=== PATIENT | male | born 1985 | race African-American/Black ===

== ENCOUNTER 2017-07-17 15:31 | Emergency (ER) | payer OTHER ==
[~2017-07-17] VITALS: Ht 170.2 cm; Wt 74.8 kg
--- NOTE | 2017-07-17 16:41 | NUR ---
PT TO ER BED 11. HERE FOR PSYCH EVAL. STATES HAVING SI AND HI. PLAN ON SHOOTING AT PEOPLE. PT PLACED ON SUICIDE PRECAUTION. STABLE VITALS. AWAITING MD STEPHENSON.
--- NOTE | 2017-07-17 16:49 | NUR ---
DR HOLLEY AT BEDSIDE FOR EVAL.
--- NOTE | 2017-07-17 16:57 | NUR ---
TAG METER OPERATOR AT BEDSIDE FOR BLOOD DRAW.
[2017-07-17 17:02] LABS: EOSINOPHILS # (AUTO) 0.1 /CMM (0.0-0.7); HEMOGLOBIN 13.7 g/dL (13.5-17.5); LYMPHOCYTES # (AUTO) 1.9 /CMM (0.8-4.8); MONOCYTES # (AUTO) 0.6 /CMM (0.1-1.30)
[2017-07-17 17:07] LABS: BASOPHILS # (AUTO) 0.1 /CMM (0.0-0.2); BASOPHILS % (AUTO) 1.2 % (0.0-2.0); EOSINOPHILS % (AUTO) 1.1 % (0.0-6.0); HEMATOCRIT 41 % (39-51); LYMPHOCYTES % (AUTO) 25.2 % (20.0-44.0); MEAN CORPUSCULAR HEMOGLOBIN 27 PG (26.0-33.0); MEAN CORPUSCULAR HGB CONC 33 g/dl (31.0-36.0); MEAN CORPUSCULAR VOLUME 82 fL (80-96); MONOCYTES % (AUTO) 8.5 % (2.0-12.0); NEUTROPHILS # (AUTO) 4.9 /CMM (1.8-8.9); PLATELET COUNT (AUTO) 306 /CMM (150-450); RDW COEFFICIENT OF VARIATION 13.6 (11.5-15.0); RED BLOOD CELL COUNT(AUTO) 5.06 MIL/uL (4.5-6.0); WHITE BLOOD COUNT (AUTO) 7.6 K/uL (4.3-11.0)
[2017-07-17 17:16] LABS: ALANINE AMINOTRANSFERASE 47 U/L (12-78); ALBUMIN 4.1 g/dL (3.4-5.0); ALCOHOL, BLOOD < 3 mg/dL (0-0); ALKALINE PHOSPHATASE 102 U/L (46-116); ASPARTATE AMINOTRANSFERASE 42 U/L (15-37); BILIRUBIN,DIRECT 0.2 mg/dL (0.0-0.2); BILIRUBIN,TOTAL 0.8 mg/dL (0.2-1.0); CALCIUM, SERUM 8.9 mg/dL (8.5-10.1); CARBON DIOXIDE 30 mmol/L (21-32); CHLORIDE 103 mmol/L (98-107); CREATININE 0.8 mg/dL (0.6-1.3); GLUCOSE 81 mg/dL (74-106); POTASSIUM 3.2 mmol/L (3.5-5.1); SODIUM SERUM 140 mmol/L (136-145); TOTAL PROTEIN, SERUM 7.7 g/dL (6.4-8.2); UREA NITROGEN, BLOOD 13 mg/dL (7-18)
[2017-07-17 17:17] LABS: ACETAMINOPHEN < 2 ug/ml (10-30); SALICYLATE 0.5 mg/dL (2.8-20.0)
[2017-07-17] MEDS ORDERED: POTASSIUM CHLORIDE 20 MEQ TAB.PRT.SR PO ONE (17:27)
[2017-07-17] MEDS: POTASSIUM CHLORIDE 20 MEQ TAB.PRT.SR PO ONE (17:30)
[2017-07-17 17:32] LABS: APPEARANCE,URINE CLEAR (CLEAR); BILIRUBIN,URINE 1+ (NEGATIVE); BLOOD, URINE NEGATIVE Ery/uL (NEGATIVE); COLOR,URINE YELLOW (YELLOW); KETONES,URINE 3+ (NEGATIVE); LEUKOCYTE ESTERASE ,URINE NEGATIVE (NEGATIVE); NITRITE, URINE NEGATIVE (NEGATIVE); PROTEIN,URINE 2+ mg/dl (NEGATIVE); UGLUCOSE NEGATIVE (NEGATIVE)
[2017-07-17 17:41] LABS: BACTERIA,URINE Rare /HPF (None Seen); MUCUS,URINE Rare /LPF (None Seen); RBC,URINE 0-2 /HPF (0-2); SQUAMOUS EPITHELIAL CELL,UR Few /HPF (None Seen)
--- NOTE | 2017-07-17 18:31 | NUR ---
MONICA GONZALEZ CALLED FOR EVAL
--- NOTE | 2017-07-17 19:40 | NUR ---
MARLENE RN AT BEDSIDE FOR PSYCH EVAL.
[2017-07-17 20:30] VITALS: BP 133/77
== END 2017-07-17 22:59 | disposition left against medical advice (07) ==
LOC: ER 15:32
DX: Z02.89 Encounter for other administrative examinations (principal); F15.10 Other stimulant abuse, uncomplicated; F12.10 Cannabis abuse, uncomplicated; E87.6 Hypokalemia; J44.9 Chronic obstructive pulmonary disease, unspecified; G89.29 Other chronic pain
CPT/HCPCS: 36415; 80048-TC; 80076-TC; 80305; 81000-TC; 85025-TC; A4606; G0480; Z7610

== ENCOUNTER 2019-08-18 18:10 | Emergency (ER) | payer OTHER ==
[~2019-08-18] VITALS: Ht 175.3 cm; Wt 77.1 kg
--- NOTE | 2019-08-18 18:30 | NUR ---
SUICIDAL IDEATION; CALLED [address] PATIENT A/OX4, STATES "FEELING DAZE" UNABLE TO DESCRIBE PLAN. BREATHING EVEN AND UNLABORED, CHANGED INTO GOWN, BELONGINGS TAKEN, WANDING WILL BE DONE BY SECURITY. PATIENT COOPERATIVE AT THIS TIME.
[2019-08-18 18:52] LABS: APPEARANCE,URINE Clear (CLEAR); BILIRUBIN,URINE SMALL (NEGATIVE); BLOOD, URINE Negative Ery/uL (NEGATIVE); COLOR,URINE Yellow (YELLOW); KETONES,URINE 15 (NEGATIVE); LEUKOCYTE ESTERASE ,URINE Negative (NEGATIVE); NITRITE, URINE Negative (NEGATIVE); PROTEIN,URINE 30 mg/dl (NEGATIVE); UGLUCOSE Negative (NEGATIVE)
[2019-08-18 18:57] LABS: BASOPHILS # (AUTO) 0.1 /CMM (0.0-0.2); BASOPHILS % (AUTO) 0.7 % (0.0-2.0); EOSINOPHILS % (AUTO) 0.6 % (0.0-6.0); HEMATOCRIT 39 % (39-51); HEMOGLOBIN 12.6 g/dL (13.5-17.5); LYMPHOCYTES # (AUTO) 2.2 /CMM (0.8-4.8); LYMPHOCYTES % (AUTO) 28.2 % (20.0-44.0); MEAN CORPUSCULAR HGB CONC 32 g/dl (31.0-36.0); MEAN CORPUSCULAR VOLUME 80 fL (80-96); MONOCYTES # (AUTO) 1.4 /CMM (0.1-1.30); MONOCYTES % (AUTO) 17.3 % (2.0-12.0); NEUTROPHILS # (AUTO) 4.3 /CMM (1.8-8.9); NEUTROPHILS % (AUTO) 53.2 % (43.0-81.0); PLATELET COUNT (AUTO) 306 /CMM (150-450); RED BLOOD CELL COUNT(AUTO) 4.87 MIL/uL (4.5-6.0)
[2019-08-18 19:02] LABS: BACTERIA,URINE Rare /HPF (None Seen); MUCUS,URINE Few /LPF (None Seen); RBC,URINE NONE SEEN /HPF (0-2); WBC,URINE NONE SEEN /HPF (0-3)
[2019-08-18 19:27] LABS: ALANINE AMINOTRANSFERASE 46 U/L (12-78); ALBUMIN 3.6 g/dL (3.4-5.0); ALKALINE PHOSPHATASE 77 U/L (46-116); ASPARTATE AMINOTRANSFERASE 57 U/L (15-37); BILIRUBIN,DIRECT 0.1 mg/dL (0.0-0.2); BILIRUBIN,TOTAL 0.6 mg/dL (0.2-1.0); CALCIUM, SERUM 8.5 mg/dL (8.5-10.1); CARBON DIOXIDE 35 mmol/L (21-32); CHLORIDE 96 mmol/L (98-107); CREATININE 1.2 mg/dL (0.6-1.3); GLUCOSE 113 mg/dL (74-106); SODIUM SERUM 137 mmol/L (136-145); TOTAL PROTEIN, SERUM 7.4 g/dL (6.4-8.2); UREA NITROGEN, BLOOD 19 mg/dL (7-18)
[2019-08-18 19:28] LABS: ACETAMINOPHEN < 10 ug/ml (10-30); ALCOHOL, BLOOD < 3 mg/dL (0-0); SALICYLATE 0.2 mg/dL (2.8-20.0)
[2019-08-18 19:30] LABS: POTASSIUM 2.7 mmol/L (3.5-5.1)
[2019-08-18] MEDS ORDERED: IV PREMIX 0.45% NS + KCL 1,000 ML IV ONE (19:49)
[2019-08-18] MEDS ORDERED: POTASSIUM CHLORIDE 20 MEQ TAB.PRT.SR PO ONE ×2 (20:00→21:44)
[2019-08-18] MEDS ORDERED: POTASSIUM CL. PREMIX PERIPHER. 100 ML ONE (20:02)
[2019-08-18 20:19] LABS: EOSINOPHILS % (MANUAL) 2 % (0-4); LYMPHOCYTES % (MANUAL) 34 % (16-48); MONOCYTES % (MANUAL) 14 % (0-11.0); NEUTROPHILS % (MANUAL) 50 (42-76)
[2019-08-18 22:08] LABS: CREATININE 1.1 mg/dL (0.6-1.3)
[2019-08-18 22:11] LABS: POTASSIUM 2.8 mmol/L (3.5-5.1)
[2019-08-18 22:30] VITALS: BP 134/78
--- NOTE | 2019-08-19 00:02 | NUR ---
PT WANTED TO GO HOME, PT DENIES ANY SUICIDAL AND HOMICIDAL IDEATIONS; EVALUATED BY DR. TALAVERA, PT IS CLEAR TO BE D/C, PT DID NOT WANT TO WAIT FOR ANY PAPERS. PT LEFT THE ER IN STABLE CONDITION.
== END 2019-08-19 00:02 | disposition left against medical advice (07) ==
LOC: ER 18:12
DX: F29 Unspecified psychosis not due to a substance or known physiological condition (principal); E87.6 Hypokalemia; F32.9 Major depressive disorder, single episode, unspecified; F12.90 Cannabis use, unspecified, uncomplicated; F15.10 Other stimulant abuse, uncomplicated; J44.9 Chronic obstructive pulmonary disease, unspecified; Z59.0 Homelessness; Z04.6 Encounter for general psychiatric examination, requested by authority
CPT/HCPCS: 36415; 80048 ×2; 80076; 80305; 80307; 80329; 81001; 85025; 96365; 96366; 99284; G0480; J3480; J3490; J7030; 81000-TC

== ENCOUNTER 2020-01-03 02:28 | Emergency (ER) | payer OTHER ==
[~2020-01-03] VITALS: Ht 170.2 cm; Wt 74.8 kg
--- NOTE | 2020-01-03 03:09 | NUR ---
PT AAOX4. AMBULATORY WITH STEADY GAIT. BIBSELF C/O EPIGASTRIC PAIN X1 DAY, NO ACUTE DISTRESS NOTED. MD AT BEDSIDE FOR EVAL. AWAITING ORDERS. VSS.
[2020-01-03] MEDS ORDERED: MAG HYDROX/AL HYDROX/SIMETH 30 ML UDC ONE (03:12)
[2020-01-03] MEDS ORDERED: LIDOCAINE VISCOUS 2% UD 15 ML UDC ONE (03:12)
[2020-01-03] MEDS ORDERED: LIDOCAINE VISCOUS 2% UD 15 ML UDC MM ONE (03:30)
[2020-01-03] MEDS ORDERED: MAG HYDROX/AL HYDROX/SIMETH 30 ML UDC PO ONE (03:30)
--- NOTE | 2020-01-03 04:18 | NUR ---
Patient is resting comfortably in bed. Easily aroused. VSS.
--- NOTE | 2020-01-03 04:21 | NUR ---
Patient discharged to home in stable condition. Written and verbal after care instructions given. Patient verbalizes understanding of instruction. Pt stated he does not feel pain anymore. vss.
[2020-01-03 06:02] VITALS: BP 131/75
== END 2020-01-03 06:02 | disposition home or self-care (01) ==
LOC: ER 02:34
DX: R10.13 Epigastric pain (principal); J44.9 Chronic obstructive pulmonary disease, unspecified; Z59.0 Homelessness

== ENCOUNTER 2020-03-13 14:27 | Emergency (ER) | payer OTHER ==
[~2020-03-13] VITALS: Ht 170.2 cm; Wt 74.8 kg
--- NOTE | 2020-03-13 14:52 | NUR ---
came in for nausea and vomiting x 3 days, unable to keep food in. depressed. -si/hi, to ER bed 14, changed to hosp gown, hooked to BP cuff and monitor, provided w warm blanket, patient aao x 3, breathing even and unlabored, no distress noted. Dr Rosenbaum at bedside for eval
[2020-03-13 15:04] LABS: BASOPHILS % (AUTO) 0.4 % (0.0-2.0); EOSINOPHILS % (AUTO) 0.4 % (0.0-6.0); HEMATOCRIT 44 % (39-51); HEMOGLOBIN 14.1 g/dL (13.5-17.5); LYMPHOCYTES # (AUTO) 2.2 /CMM (0.8-4.8); LYMPHOCYTES % (AUTO) 26.4 % (20.0-44.0); MEAN CORPUSCULAR HGB CONC 32 g/dl (31.0-36.0); MEAN CORPUSCULAR VOLUME 83 fL (80-96); MONOCYTES # (AUTO) 1.1 /CMM (0.1-1.30); MONOCYTES % (AUTO) 13.5 % (2.0-12.0); NEUTROPHILS % (AUTO) 59.3 % (43.0-81.0); PLATELET COUNT (AUTO) 355 /CMM (150-450); RED BLOOD CELL COUNT(AUTO) 5.29 MIL/uL (4.5-6.0); WHITE BLOOD COUNT (AUTO) 8.4 K/uL (4.3-11.0)
[2020-03-13 15:24] LABS: CALCIUM, SERUM 9.5 mg/dL (8.5-10.1); CARBON DIOXIDE 26 mmol/L (21-32); CHLORIDE 99 mmol/L (98-107); GLUCOSE 96 mg/dL (74-106); POTASSIUM 3.6 mmol/L (3.5-5.1); SODIUM SERUM 137 mmol/L (136-145); UREA NITROGEN, BLOOD 14 mg/dL (7-18)
[2020-03-13 15:25] LABS: ACETAMINOPHEN < 2 ug/ml (10-30); ALANINE AMINOTRANSFERASE 32 U/L (12-78); ALBUMIN 4.4 g/dL (3.4-5.0); ALCOHOL, BLOOD < 3 mg/dL (0-0); ALKALINE PHOSPHATASE 73 U/L (46-116); ASPARTATE AMINOTRANSFERASE 40 U/L (15-37); BILIRUBIN,DIRECT 0.2 mg/dL (0.0-0.2); BILIRUBIN,TOTAL 1.1 mg/dL (0.2-1.0); SALICYLATE < 0.2 mg/dL (2.8-20.0); TOTAL PROTEIN, SERUM 8.1 g/dL (6.4-8.2)
--- NOTE | 2020-03-13 15:26 | NUR ---
patient unable to provide urine sample, md crane
[2020-03-13] MEDS ORDERED: ONDANSETRON 4 MG TAB.RAPDIS ONE (15:37)
[2020-03-13] MEDS: ONDANSETRON 4 MG TAB.RAPDIS SL ONE (15:50)
--- NOTE | 2020-03-13 15:57 | NUR ---
Patient given written and verbal discharge instructions. Patient verbalizes understanding of instructions. Patient is ambulatory with steady gait. Refuses offer of long-term placement. Patient given list of available shelters in surrounding area. Name band removed. All belongings returned to patient including bike. In proper clothing upon discharge.
[2020-03-13 15:59] VITALS: BP 148/100
== END 2020-03-13 16:00 | disposition home or self-care (01) ==
LOC: ER 14:42
DX: F32.9 Major depressive disorder, single episode, unspecified (principal); R11.2 Nausea with vomiting, unspecified; J44.9 Chronic obstructive pulmonary disease, unspecified; G89.29 Other chronic pain; Z59.0 Homelessness
CPT/HCPCS: 80048; 80076; 80307; 80329; 83690; 85025; 93005; 99284; G0480; Q0162

== ENCOUNTER 2020-03-15 03:41 | Emergency (ER) | payer OTHER ==
[~2020-03-15] VITALS: Ht 171.4 cm; Wt 74.8 kg
--- NOTE | 2020-03-15 03:45 | NUR ---
TO ER BED [facility] C/O SI WITH PLAN TO SHOOT SELF WITH A GUN. PT DENIES HI. PT AAOX4, CALM AND COOPERATIVE AT THIS TIME. NO ACUTE DISTRESS NOTED, RESP EVEN AND UNLABORED. PLACE PT ON HOSPITAL GOWN, ALL BELONGINGS REMOVED FROM ROOM AND PLACE IN A LOCKED HOSPITAL LOCKER. SECURITY CALLED FOR WANDING. 1:1 SITTER AT BEDSIDE OR PT SAFETY.
--- NOTE | 2020-03-15 04:17 | NUR ---
BLOOD DRAWN BY CHEMICAL PLANT OPERATOR.
[2020-03-15 04:20] LABS: BASOPHILS % (AUTO) 0.4 % (0.0-2.0); EOSINOPHILS % (AUTO) 0.6 % (0.0-6.0); HEMATOCRIT 46 % (39-51); LYMPHOCYTES % (AUTO) 23.3 % (20.0-44.0); MEAN CORPUSCULAR HGB CONC 33 g/dl (31.0-36.0); MEAN CORPUSCULAR VOLUME 81 fL (80-96); MONOCYTES % (AUTO) 11.2 % (2.0-12.0); NEUTROPHILS # (AUTO) 5.7 /CMM (1.8-8.9); NEUTROPHILS % (AUTO) 64.5 % (43.0-81.0); PLATELET COUNT (AUTO) 415 /CMM (150-450); RED BLOOD CELL COUNT(AUTO) 5.67 MIL/uL (4.5-6.0); WHITE BLOOD COUNT (AUTO) 8.8 K/uL (4.3-11.0)
[2020-03-15 04:48] LABS: CALCIUM, SERUM 9.6 mg/dL (8.5-10.1); CARBON DIOXIDE 26 mmol/L (21-32); CHLORIDE 101 mmol/L (98-107); CREATININE 1.9 mg/dL (0.6-1.3); GLUCOSE 83 mg/dL (74-106); POTASSIUM 3.7 mmol/L (3.5-5.1); SODIUM SERUM 142 mmol/L (136-145); UREA NITROGEN, BLOOD 20 mg/dL (7-18)
[2020-03-15 04:55] LABS: ALANINE AMINOTRANSFERASE 51 U/L (12-78); ALBUMIN 4.5 g/dL (3.4-5.0); ALCOHOL, BLOOD < 3 mg/dL (0-0); ALKALINE PHOSPHATASE 88 U/L (46-116); ASPARTATE AMINOTRANSFERASE 101 U/L (15-37); BILIRUBIN,DIRECT 0.3 mg/dL (0.0-0.2); BILIRUBIN,TOTAL 1.1 mg/dL (0.2-1.0); TOTAL PROTEIN, SERUM 8.8 g/dL (6.4-8.2)
[2020-03-15 04:59] LABS: ACETAMINOPHEN 0 ug/ml (10-30)
[2020-03-15 05:00] LABS: SALICYLATE < 0.2 mg/dL (2.8-20.0)
[2020-03-15 05:37] LABS: APPEARANCE,URINE CLEAR (CLEAR); BILIRUBIN,URINE NEGATIVE (NEGATIVE); BLOOD, URINE NEGATIVE Ery/uL (NEGATIVE); COLOR,URINE YELLOW (YELLOW); KETONES,URINE NEGATIVE (NEGATIVE); LEUKOCYTE ESTERASE ,URINE NEGATIVE (NEGATIVE); NITRITE, URINE NEGATIVE (NEGATIVE); PROTEIN,URINE NEGATIVE (NEGATIVE); UGLUCOSE NEGATIVE (NEGATIVE); UROBILINOGEN,URINE 0.2 EU/dL (0.2)
--- NOTE | 2020-03-15 06:31 | NUR ---
CLINICAL FAXED TO [facility] FOR VOLUNTARY PSYCH ADMISSION.
--- NOTE | 2020-03-15 07:37 | NUR ---
ASSESSED PT ON BED AWAKE AND ALERT, NOT IN RESPIRATORY DISTRESS, V/S STABLE, KEPT RESTED AND COMFORTABLE. WILL CONTINUE TO MONITOR.
--- NOTE | 2020-03-15 08:04 | NUR ---
FOOD TRAY PROVIDED.
--- NOTE | 2020-03-15 08:30 | NUR ---
PT STATED HE IS NOT SUICIDAL ANYMORE AND WANTS TO BE DISCHARGED. ER MD AWARE.
--- NOTE | 2020-03-15 08:40 | NUR ---
Patient given written and verbal discharge instructions. Patient verbalizes understanding of instructions. Patient is ambulatory with steady gait. Refuses offer of assisted placement. Patient given list of available shelters in surrounding area.
[2020-03-15 08:41] VITALS: BP 122/72
== END 2020-03-15 09:02 | disposition home or self-care (01) ==
LOC: ER 03:42
DX: R45.851 Suicidal ideations (principal); J44.9 Chronic obstructive pulmonary disease, unspecified; G89.29 Other chronic pain; Z59.0 Homelessness
CPT/HCPCS: 36415; 80048; 80076; 80305; 80307; 80329; 81001; 85025; 99285; G0480; 81000-TC

== ENCOUNTER 2022-01-04 23:12 | Emergency (ER) | payer OTHER ==
[~2022-01-04] VITALS: Ht 170.2 cm; Wt 93.0 kg
[2022-01-05 00:17] LABS: BILIRUBIN,URINE NEGATIVE (NEGATIVE); COLOR,URINE YELLOW (YELLOW); LEUKOCYTE ESTERASE ,URINE NEGATIVE (NEGATIVE); NITRITE, URINE NEGATIVE (NEGATIVE); PROTEIN,URINE TRACE mg/dl (NEGATIVE); UGLUCOSE NEGATIVE (NEGATIVE)
[2022-01-05 00:19] LABS: BASOPHILS % (AUTO) 0.6 % (0.0-2.0); EOSINOPHILS % (AUTO) 0.8 % (0.0-6.0); HEMATOCRIT 44 % (39-51); HEMOGLOBIN 14.3 g/dL (13.5-17.5); LYMPHOCYTES # (AUTO) 2.2 K/uL (0.8-4.8); LYMPHOCYTES % (AUTO) 27.6 % (20.0-44.0); MEAN CORPUSCULAR HGB CONC 32 g/dl (31.0-36.0); MEAN CORPUSCULAR VOLUME 80 fL (80-96); MONOCYTES # (AUTO) 0.6 K/uL (0.1-1.30); MONOCYTES % (AUTO) 7.7 % (2.0-12.0); NEUTROPHILS # (AUTO) 4.9 K/uL (1.8-8.9); NEUTROPHILS % (AUTO) 63.3 % (43.0-81.0); PLATELET COUNT (AUTO) 315 K/uL (150-450); RED BLOOD CELL COUNT(AUTO) 5.52 MIL/uL (4.5-6.0); WHITE BLOOD COUNT (AUTO) 7.8 K/uL (4.3-11.0)
[2022-01-05 00:51] LABS: CARBON DIOXIDE 26 mmol/L (21-32); CHLORIDE 104 mmol/L (98-107); GLUCOSE 92 mg/dL (74-106); SODIUM SERUM 138 mmol/L (136-145); UREA NITROGEN, BLOOD 9 mg/dL (7-18)
[2022-01-05 00:56] LABS: ALANINE AMINOTRANSFERASE 53 U/L (12-78); ALBUMIN 4.4 g/dL (3.4-5.0); ALCOHOL, BLOOD < 3 mg/dL (0-0); ALKALINE PHOSPHATASE 109 U/L (46-116); ASPARTATE AMINOTRANSFERASE 38 U/L (15-37); BILIRUBIN,DIRECT 0.2 mg/dL (0.0-0.2); BILIRUBIN,TOTAL 0.7 mg/dL (0.2-1.0); TOTAL PROTEIN, SERUM 8.6 g/dL (6.4-8.2)
[2022-01-05 00:57] LABS: ACETAMINOPHEN < 2 ug/ml (10-30)
--- NOTE | 2022-01-05 02:06 | NUR ---
FAXED FACESHEET AND CLININCALS TO [facility]
--- NOTE | 2022-01-05 08:10 | NUR ---
BREAKFAST SERVED. THE PATIENT MOE IT WELL.
--- NOTE | 2022-01-05 09:00 | NUR ---
CALLED [facility] AND WAS NOTIFIED THAT THE PT CANNOT BE ADMITTED DUE TO PAST ACCOUNTS OF BEING AGRESSIVE TO STAFF. CALLING HOSE MENDER FOR FURTHER ACTION
--- NOTE | 2022-01-05 09:09 | NUR ---
CALLED SAGRARIO ALLEN REGARDING PT. SHE WILL BE COMING DOWN TO SEE THE PT
--- NOTE | 2022-01-05 09:20 | NUR ---
SAGRARIO ALLEN (PSYCH CLINICIAN) AT THE BEDSIDE
--- NOTE | 2022-01-05 09:35 | NUR ---
THE PATIENT IS ALERT AND ORIENTED X4. IN ROOM AIR AND DENIES SOB. RESPIRATION REGULAR AND UNLABORED. THE PATIENT DENIES SI/HI. DENIES HAVING ANY TYPE OF HALLUCINATIONS. DR BOBO MADE AWARE.
[2022-01-05 09:45] VITALS: BP 131/82
--- NOTE | 2022-01-05 09:45 | NUR ---
Patient given written and verbal discharge instructions. Patient verbalizes understanding of instructions. Patient is ambulatory with steady gait. Refuses offer of nursing home placement. Patient given list of available shelters in surrounding area.
== END 2022-01-05 09:45 | disposition home or self-care (01) ==
LOC: ER 23:16
DX: R45.851 Suicidal ideations (principal); R06.02 Shortness of breath; Z20.822 Contact with and (suspected) exposure to COVID-19; Z59.00 Homelessness unspecified; J44.9 Chronic obstructive pulmonary disease, unspecified; Z86.79 Personal history of other diseases of the circulatory system
CPT/HCPCS: 99285; 71045; 36415; 80307; 85025; 80048; 80076; 81003; 87426; 80143; 80320; C9803; G0480